=== PATIENT | female | born 2000 | race Caucasian/White ===

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

== ENCOUNTER 2020-11-08 17:10 | Emergency (ER) | payer OTHER ==
[2020-11-08 17:57] VITALS: BP 120/68; PULSE 89; TEMP 98.4; BMI 29.6
[2020-11-08] MEDS ORDERED: IBUPROFEN 600 MG TABLET (FP) PO ONE (18:24)
[2020-11-08] MEDS ORDERED: ONDANSETRON *ODT* 4 MG TABLET SL ONE (19:06)
== END 2020-11-08 19:07 | disposition home or self-care (01) ==
LOC: JER 17:10
DX: U07.1 COVID-19 (principal)
CPT/HCPCS: 99283-25; C9803; Q0162; U0003

== ENCOUNTER 2020-11-18 11:18 | Emergency (ER) | payer OTHER ==
[2020-11-18 11:27] VITALS: BP 111/54; PULSE 87; TEMP 97.5; BMI 29.1
[2020-11-18] MEDS ORDERED: KETOROLAC TROMETHAMINE 30 MG/1 ML VIAL IVPUSH ONE (11:46)
[2020-11-18] MEDS ORDERED: METOCLOPRAMIDE HCL INJECTION 10 MG/2 ML VIAL IVPUSH ONE (11:46)
[2020-11-18] MEDS ORDERED: SODIUM CHLORIDE 0.9% 500 ML INFUS.BAG IV ONE (11:46)
[2020-11-18] MEDS ORDERED: KETOROLAC TROMETHAMINE 30 MG/1 ML VIAL ONE (12:32)
[2020-11-18] MEDS ORDERED: DEXAMETHASONE SOD PHOSPHATE 10 MG/1 ML VIAL ONE (12:37)
[2020-11-18] MEDS ORDERED: METOCLOPRAMIDE HCL INJECTION 10 MG/2 ML VIAL ONE (12:46)
== END 2020-11-18 14:49 | disposition home or self-care (01) ==
LOC: JER 11:18
PROC: 3E033NZ Introduction of Analgesics, Hypnotics, Sedatives into Peripheral Vein, Percutaneous Approach (ICD-10-PCS; principal; 2020-11-18)
PROC: 3E0333Z Introduction of Anti-inflammatory into Peripheral Vein, Percutaneous Approach (ICD-10-PCS; 2020-11-18)
DX: G43.909 Migraine, unspecified, not intractable, without status migrainosus (principal)
CPT/HCPCS: 99285-25